=== PATIENT | male | born 1940 | race Caucasian/White ===

== ENCOUNTER 2024-10-15 21:53 | Emergency (ER) | payer MEDICARE ==
--- NOTE | 2024-10-15 21:57 | ERPHSYRPT ---
- History of Present Illness Time Seen by Provider: 10/15/24 21:57 Source: patient, family Exam Limitations: no limitations Physician History: This is an 84-year-old white male patient who was brought to the emergency department by private vehicle accompanied by his son. The patient's family have a camera installed so they can keep an eye on their father noticed that he was crawling on the ground. They went to see him and he was confused and complained that he was having some dizziness. He denies chest pain. Patient does have a degree of dementia. Patient states he did not fall he just was dizzy so he slowly made his way to the ground. Since the time the family picked him up and the son brought him to the emergency department, the son and patient states that he is at his baseline neurologically. Patient is oriented to himself and to location. Patient is NIH stroke scale is 0. The patient has a history of diabetes, dementia, hypertension and hyperlipidemia Timing/Duration: today Severity: mild Character of Deficits: none Baseline Gait: walks w/o assistance Associated Symptoms: confusion, other (Mild dizziness. Patient is not oriented to time but is alert oriented to self and location) Allergies/Adverse Reactions: No Known Drug Allergies Allergy (Verified 10/15/24 22:25) Home Medications: Amlodipine Besylate 5 mg [Norvasc 5 mg] 10 mg PO DAILY 12/31/21 [History] Aspirin 81 gm Chew [Baby Aspirin 81 mg Chew] 81 gm PO DAILY 12/31/21 [History] Atorvastatin Calcium [Lipitor 20MG Tablet] 20 mg PO DAILY 12/31/21 [History] Metoprolol Tartrate 50 mg [Lopressor 50 MG] 50 mg PO BID 12/31/21 [History] Lisinopril 10 mg [Zestril 10 MG] 1 tab PO HS 03/12/23 [History] Metformin HCl [Metformin HCl ER] 2 tab PO BID 03/12/23 [History] Quetiapine Fumarate 100 mg [Seroquel 100 MG] 100 mg PO HS 10/15/24 [History] Hx Tetanus, Diphtheria Vaccination/Date Given: Yes Hx Influenza Vaccination/Date Given: Yes Hx Pneumococcal Vaccination/Date Given: Yes Travel Risk - International Travel Have you traveled outside of the country in past 3 weeks: No - Emerging Infectious Disease Are you exhibiting symptoms associated with any current EIDs: No - Review of Systems Constitutional: No Symptoms Eyes: No Symptoms Ears, Nose, & Throat: No Symptoms Respiratory: No Symptoms Cardiac: No Symptoms Abdominal/Gastrointestinal: No Symptoms Genitourinary Symptoms: No Symptoms Musculoskeletal: No Symptoms Skin: No Symptoms Neurological: No Symptoms Psychological: No Symptoms Endocrine: No Symptoms Hematologic/Lymphatic: No Symptoms Immunological/Allergic: No Symptoms All Other Systems: Reviewed and Negative - Past Medical History Pertinent Past Medical History: No - Past Surgical History Past Surgical History: Yes Other Surgical History: heart graft Significant Family History: no pertinent family hx - Social History Smoking Status: Former smoker Exposure to second hand smoke: No Drug Use: none Patient Lives Alone: Yes - Nursing Vital Signs Nursing Vital Signs: Initial Vital Signs Temperature 97.6 F 10/15/24 22:06 Pulse Rate 67 10/15/24 22:06 Respiratory Rate 16 10/15/24 22:06 Blood Pressure 137/72 10/15/24 22:06 O2 Sat by Pulse Oximetry 99 10/15/24 22:06 Pain Scale Pain Intensity 0 - [place] Coma Scale Best Eye Response (Selena): (4) open spontaneously Best Verbal Response (Selena): (5) oriented Best Motor Response ([place]): (6) obeys commands [place] Total: 15 - Physical Exam General Appearance: no apparent distress, alert, anxiety Eye Exam: bilateral eye: normal inspection, PERRL, EOMI Ears, Nose, Throat Exam: normal ENT inspection, moist mucous membranes Neck Exam: normal inspection, non-tender, supple, full range of motion Respiratory: normal breath sounds, lungs clear, airway intact, No chest tenderness, No respiratory distress Cardiovascular: regular rate/rhythm, normal heart sounds, normal peripheral pulses Gastrointestinal: soft, normal bowel sounds, No tenderness Rectal Exam: not done Back Exam: normal inspection, normal range of motion, No CVA tenderness, No vertebral tenderness Extremity Exam: normal inspection, normal range of motion, pelvis stable Mental Status: alert, oriented x 3, 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 QTc is 424) Ordered Tests: Active Orders 24 hr Category Date Time Status EKG-ER Only STAT Care 10/15/24 22:43 Active IV Insertion STAT Care 10/15/24 22:43 Active NPO (ED) STAT Care 10/15/24 22:44 Active Pulse Oximetry (ED) STAT Care 10/15/24 22:43 Active HEAD WITHOUT CONTRAST [CT] Stat Exams 10/15/24 22:44 Completed CBC W DIFF Stat Lab 10/15/24 22:54 Completed CMP Stat Lab 10/15/24 22:54 Completed MAGNESIUM Stat Lab 10/15/24 22:54 Completed MONO SCREEN Stat Lab 10/15/24 22:54 Completed TROPONIN Q4H Lab 10/15/24 22:54 Completed TROPONIN Q4H Lab 10/16/24 02:45 Ordered TROPONIN Q4H Lab 10/16/24 06:45 Ordered UA W/RFX UR CULTURE Stat Lab 10/16/24 00:50 Completed Medication Summary Generic Name Dose Route Start Last Admin Trade Name Freq PRN Reason Stop Dose Admin Sodium Chloride 1,000 mls @ 100 mls/hr 10/15/24 22:45 10/15/24 23:02 Sodium Chloride 0.9% 1000 Ml IV 11/14/24 22:44 100 mls/hr .Q10H SAVANAH Administration Lab/Rad Data: Laboratory Result Diagrams 10/15/24 22:54 10/15/24 22:54 Laboratory Results 10/16/24 10/15/24 10/15/24 Range/Units 00:50 23:10 22:56 WBC (4.23-9.07) x10^3/uL RBC (4.63-6.08) x10^6/uL Hgb (13.7-17.5) g/dL Hct (40.1-51.0) % MCV (79.0-92.2) fL MCH (25.7-32.2) pg MCHC (32.3-36.5) g/dL RDW (11.6-14.4) % Plt Count (163-337) x10^3/uL MPV (9.4-12.4) fL Gran % (34.0-67.9) % Immature Gran % (Auto) (0.001-0.429) % Nucleat RBC Rel Count (0.00-0.2) % Eos # (Auto) (0.04-0.54) x10^3/uL Immature Gran # (Auto) (0.001-0.031) x10^3u/L Absolute Lymphs (auto) (1.32-3.57) x10^3/uL Absolute Monos (auto) (0.30-0.82) x10^3/uL Absolute Nucleated RBC (0.00-0.012) x10^3u/L Lymphocytes % (21.8-53.1) % Monocytes % (5.3-12.2) % Eosinophils % (0.8-7.0) % Basophils % (0.2-1.2) % Absolute Granulocytes (1.78-5.38) x10^3/uL Basophils # (0.01-0.08) x10^3/uL Sodium (135-145) mmol/L Potassium (3.5-5.1) mmol/L Chloride (98-107) mmol/L Carbon Dioxide (22-30) mmol/L Anion Gap (5-15) MEQ/L BUN (9-20) mg/dL Creatinine (0.66-1.25) mg/dL Estimated GFR ML/MIN Glucose (74-106) mg/dL Calcium (8.4-10.2) mg/dL Magnesium (1.6-2.3) mg/dL Total Bilirubin (0.2-1.3) mg/dL AST (17-59) U/L ALT (0-50) U/L Alkaline Phosphatase (38-126) U/L Ammonia < 9 L (9-30) umol/L Troponin I (0.000-0.033) ng/mL Serum Total Protein (6.3-8.2) g/dL Albumin (3.5-5.0) g/dL Urine Color Yellow (Yellow) Urine Appearance Clear (Clear) Urine pH 5.0 (4.6-8.0) Ur Specific [place] 1.025 (1.005-1.030) Urine Protein 30 (Negative) Urine Glucose (UA) 100 A (Negative) mg/dL Urine Ketones Trace A (Negative) Urine Blood Negative (Negative) Urine Nitrite Negative (Negative) Urine Bilirubin Negative (Negative) Urine Urobilinogen 0.2 (0.2) mg/dL Ur Leukocyte Esterase Negative (Negative) U Hyaline Cast (Auto) 6-10 A (0-2) /LPF Urine Microscopic RBC 0-2 (0-5) /HPF Urine Microscopic WBC 0-2 (0-5) /HPF Ur Epithelial Cells None Seen (None Seen) /HPF Urine Bacteria None Seen (None Seen) /HPF Urine Culture Reflexed NO (NO) Monoscreen (NEGATIVE) Influenza Type A Ag NEGATIVE (NEGATIVE) Influenza Type B Ag NEGATIVE (NEGATIVE) RSV (PCR) NEGATIVE (NEGATIVE) SARS-CoV-2 (PCR) NEGATIVE (NEGATIVE) 10/15/24 10/15/24 10/15/24 Range/Units 22:54 22:54 22:54 WBC (4.23-9.07) x10^3/uL RBC (4.63-6.08) x10^6/uL Hgb (13.7-17.5) g/dL Hct (40.1-51.0) % MCV (79.0-92.2) fL MCH (25.7-32.2) pg MCHC (32.3-36.5) g/dL RDW (11.6-14.4) % Plt Count (163-337) x10^3/uL MPV (9.4-12.4) fL Gran % (34.0-67.9) % Immature Gran % (Auto) (0.001-0.429) % Nucleat RBC Rel Count (0.00-0.2) % Eos # (Auto) (0.04-0.54) x10^3/uL Immature Gran # (Auto) (0.001-0.031) x10^3u/L Absolute Lymphs (auto) (1.32-3.57) x10^3/uL Absolute Monos (auto) (0.30-0.82) x10^3/uL Absolute Nucleated RBC (0.00-0.012) x10^3u/L Lymphocytes % (21.8-53.1) % Monocytes % (5.3-12.2) % Eosinophils % (0.8-7.0) % Basophils % (0.2-1.2) % Absolute Granulocytes (1.78-5.38) x10^3/uL Basophils # (0.01-0.08) x10^3/uL Sodium 139 (135-145) mmol/L Potassium 5.1 (3.5-5.1) mmol/L Chloride 109 H (98-107) mmol/L Carbon Dioxide 17 L (22-30) mmol/L Anion Gap 17.4 H (5-15) MEQ/L BUN 23 H (9-20) mg/dL Creatinine 1.73 H (0.66-1.25) mg/dL Estimated GFR 38.9 ML/MIN Glucose 132 H (74-106) mg/dL Calcium 8.6 (8.4-10.2) mg/dL Magnesium 2.1 (1.6-2.3) mg/dL Total Bilirubin 0.50 (0.2-1.3) mg/dL AST 21 (17-59) U/L ALT 17 (0-50) U/L Alkaline Phosphatase 108 (38-126) U/L Ammonia (9-30) umol/L Troponin I < 0.012 (0.000-0.033) ng/mL Serum Total Protein 6.3 (6.3-8.2) g/dL Albumin 3.7 (3.5-5.0) g/dL Urine Color (Yellow) Urine Appearance (Clear) Urine pH (4.6-8.0) Ur Specific [place] (1.005-1.030) Urine Protein (Negative) Urine Glucose (UA) (Negative) mg/dL Urine Ketones (Negative) Urine Blood (Negative) Urine Nitrite (Negative) Urine Bilirubin (Negative) Urine Urobilinogen (0.2) mg/dL Ur Leukocyte Esterase (Negative) U Hyaline Cast (Auto) (0-2) /LPF Urine Microscopic RBC (0-5) /HPF Urine Microscopic WBC (0-5) /HPF Ur Epithelial Cells (None Seen) /HPF Urine Bacteria (None Seen) /HPF Urine Culture Reflexed (NO) Monoscreen NEGATIVE (NEGATIVE) Influenza Type A Ag (NEGATIVE) Influenza Type B Ag (NEGATIVE) RSV (PCR) (NEGATIVE) SARS-CoV-2 (PCR) (NEGATIVE) 10/15/24 Range/Units 22:54 WBC 9.0 (4.23-9.07) x10^3/uL RBC 4.40 L (4.63-6.08) x10^6/uL Hgb 12.0 L (13.7-17.5) g/dL Hct 37.7 L (40.1-51.0) % MCV 85.7 (79.0-92.2) fL MCH 27.3 (25.7-32.2) pg MCHC 31.8 L (32.3-36.5) g/dL RDW 15.2 H (11.6-14.4) % Plt Count 302 (163-337) x10^3/uL MPV 9.3 L (9.4-12.4) fL Gran % 81.6 H (34.0-67.9) % Immature Gran % (Auto) 0.6 H (0.001-0.429) % Nucleat RBC Rel Count 0.0 (0.00-0.2) % Eos # (Auto) 0.21 (0.04-0.54) x10^3/uL Immature Gran # (Auto) 0.05 H (0.001-0.031) x10^3u/L Absolute Lymphs (auto) 0.62 L (1.32-3.57) x10^3/uL Absolute Monos (auto) 0.75 (0.30-0.82) x10^3/uL Absolute Nucleated RBC 0.00 (0.00-0.012) x10^3u/L Lymphocytes % 6.9 L (21.8-53.1) % Monocytes % 8.3 (5.3-12.2) % Eosinophils % 2.3 (0.8-7.0) % Basophils % 0.3 (0.2-1.2) % Absolute Granulocytes 7.34 H (1.78-5.38) x10^3/uL Basophils # 0.03 (0.01-0.08) x10^3/uL Sodium (135-145) mmol/L Potassium (3.5-5.1) mmol/L Chloride (98-107) mmol/L Carbon Dioxide (22-30) mmol/L Anion Gap (5-15) MEQ/L BUN (9-20) mg/dL Creatinine (0.66-1.25) mg/dL Estimated GFR ML/MIN Glucose (74-106) mg/dL Calcium (8.4-10.2) mg/dL Magnesium (1.6-2.3) mg/dL Total Bilirubin (0.2-1.3) mg/dL AST (17-59) U/L ALT (0-50) U/L Alkaline Phosphatase (38-126) U/L Ammonia (9-30) umol/L Troponin I (0.000-0.033) ng/mL Serum Total Protein (6.3-8.2) g/dL Albumin (3.5-5.0) g/dL Urine Color (Yellow) Urine Appearance (Clear) Urine pH (4.6-8.0) Ur Specific [place] (1.005-1.030) Urine Protein (Negative) Urine Glucose (UA) (Negative) mg/dL Urine Ketones (Negative) Urine Blood (Negative) Urine Nitrite (Negative) Urine Bilirubin (Negative) Urine Urobilinogen (0.2) mg/dL Ur Leukocyte Esterase (Negative) U Hyaline Cast (Auto) (0-2) /LPF Urine Microscopic RBC (0-5) /HPF Urine Microscopic WBC (0-5) /HPF Ur Epithelial Cells (None Seen) /HPF Urine Bacteria (None Seen) /HPF Urine Culture Reflexed (NO) Monoscreen (NEGATIVE) Influenza Type A Ag (NEGATIVE) Influenza Type B Ag (NEGATIVE) RSV (PCR) (NEGATIVE) SARS-CoV-2 (PCR) (NEGATIVE) - Progress Progress: improved Progress Note: 10/15/24 23:06 My medical decision making in the assignment of moderate complexity to this patient's medical issue today is based on review of the patient's past medical history, review patient's medication list, review the patient's drug allergy list, history of present illness and physical findings on examination. The workup in this patient includes placement of a intravenous line, infusion of low rate crystalloid, CT scan of the head without contrast, twelve-lead EKG, urinal ysis, CBC, CMP, ammonia level, troponin level and magnesium level. Differential diagnosis includes but is not limited to acute intracranial abnormality, dehydration, electrolyte abnormalities, myocardial infarction, 10/16/24 00:39 I interpreted the patient's laboratory data results. The urinalysis is pending. Based on the laboratory data results, the patient does have a slightly elevated anion gap and a CO2 of 17. The GFR is low but it is improved over November 2019 for lab results. Viral swabs are negative. The CT scan of the head without contrast shows age-related cerebral atrophic changes. There is bilateral periventricular and white matter hypodensities. Likely these are small vessel ischemic changes. There is no evidence of acute infarct, hemorrhage or mass effect. 10/16/24 01:22 The urinalysis was interpreted by me. The patient has trace ketones in his urine suggesting mild dehydration. 10/16/24 01:24 The patient's son feels that his father's condition is at his baseline at this time. Counseled pt/family regarding: lab results, diagnosis, need for follow-up, rad results Medical Desision Making - Independent Historian Additional History obtained from: Family - Diagnostic Testing Diagnostic test were ordered, analyzed, and reviewed by me: Yes Radiological Interpretation: Reviewed by me, Teleradiologist Report - Risk of complications Low Risk: Low risk of morbidity from additional dx testing or treatment - Departure Departure Disposition: Home Clinical Impression: Mild dehydration, Dizziness, Dementia Condition: Stable Critical Care Time: No Referrals: GEENA GRESHAM [Primary Care Provider] - Follow up/PCP as directed Additional Instructions: Drink plenty of clear liquids. Stay with family members over the weekend. Return to the emergency department if symptoms recur/worsen. Call your primary care provider on 10/18/2024 to make arrangements for follow-up appointment for further evaluation management.
[2024-10-15 22:25] VITALS: TEMP 97.6
[2024-10-15 22:54] LABS: Absolute Neutrophil Ct (ANC) 7.34 x10^3/uL (1.78-5.38); BASOPHIL % 0.3 % (0.2-1.2); Basophil (Absolute #) 0.03 x10^3/uL (0.01-0.08); Eosinophil % 2.3 % (0.8-7.0); Eosinophil (Absolute #) 0.21 x10^3/uL (0.04-0.54); Hematocrit 37.7 % (40.1-51.0); IMMATURE GRAN # 0.05 x10^3u/L (0.001-0.031); IMMATURE GRAN % 0.6 % (0.001-0.429); Lymphocyte (Absolute #) 0.62 x10^3/uL (1.32-3.57); Lymphocytes % 6.9 % (21.8-53.1); Mean Cell Volume 85.7 fL (79.0-92.2); Mean Corpuscular Hemoglobin 27.3 pg (25.7-32.2); Mean Corpuscular Hgb Concent. 31.8 g/dL (32.3-36.5); Mean Platelet Volume 9.3 fL (9.4-12.4); Monocyte (Absolute #) 0.75 x10^3/uL (0.30-0.82); Monocytes % 8.3 % (5.3-12.2); Neutrophil % 81.6 % (34.0-67.9); Platelet Count 302 x10^3/uL (163-337); Red Cell Distribution Width 15.2 % (11.6-14.4)
[2024-10-15] MEDS ORDERED: Sodium Chloride 0.9% 1000 ML 1,000 ML ONE (23:01)
[2024-10-15] MEDS: Sodium Chloride 0.9% 1000 ML 1,000 ML IV SCH (23:02)
[2024-10-15 23:05] LABS: ALBUMIN 3.7 g/dL (3.5-5.0); ANION GAP 17.4 MEQ/L (5-15); BILIRUBIN,TOTAL 0.5 mg/dL (0.2-1.3); Calcium 8.6 mg/dL (8.4-10.2); Creatinine 1 1.73 mg/dL (0.66-1.25); EST GLOMERULAR FILTRATION RATE 38.9 ML/MIN; MAGNESIUM 2.1 mg/dL (1.6-2.3); Potassium 5.1 mmol/L (3.5-5.1); Total Protein 6.3 g/dL (6.3-8.2)
[2024-10-15 23:11] VITALS: O2SAT 99
[2024-10-15 23:48] LABS: INFLUENZA A NEGATIVE (NEGATIVE); INFLUENZA B NEGATIVE (NEGATIVE); RESPIRATORY SYNCTIAL VIRUS NEGATIVE (NEGATIVE); SARS-CoV-2 Xpert Express NEGATIVE (NEGATIVE)
--- NOTE | 2024-10-16 00:25 | XRAY ---
CLINICAL HISTORY: Dizziness; confusion COMPARISON: TECHNIQUE: Axial non-contrast CT scan of the brain was performed from the skull base to the high parietal region. One of the following dose reduction techniques were utilized for this exam: Automated exposure control, adjustment of the mA and/or kV according to patient size, use of iterative reconstruction. DLP 342.71 FINDINGS: Brain Parenchyma: Bilateral periventricular and white matter hypodensities likely represent small vessels ischemic changes. Age-related cerebral atrophic changes as evidenced by prominence of cortical sulci and gyri and mild prominent lateral ventricles. Normal attenuation of the cerebral hemispheres, cerebellum, and brainstem. No evidence of acute infarct, hemorrhage, or mass effect. No abnormal areas of hypo- or hyperattenuation. Ventricular System: Ventricles are normal in size and configuration. No evidence of hydrocephalus or ventricular enlargement. Subarachnoid Spaces: Normal sulci and cisterns. No evidence of subarachnoid hemorrhage or extra-axial fluid collections. Cerebellum and Brainstem: Normal size and signal. No masses, lesions, or areas of abnormal signal. Orbits: Normal appearance of the globes, optic nerves, and extraocular muscles. No evidence of orbital masses or abnormal signal. Sinuses: Minimal mucosal thickening of the right maxillary sinus. Clear paranasal sinuses. No evidence of sinusitis or mucosal thickening. Mastoid Air Cells: Clear mastoid air cells. No evidence of mastoiditis. Skull: Normal skull morphology. IMPRESSION: 1. Bilateral periventricular and white matter hypodensities likely represent small vessels ischemic changes. 2. Minimal mucosal thickening of the right maxillary sinus. 3. Otherwise unremarkable CT of the head without contrast. Electronically Signed by: Surinder Cochran MD. (10/16/2024 00:20:41 EST)
[2024-10-16 00:55] VITALS: BP 187/81; PULSE 68; RESP 18
[2024-10-16 01:11] LABS: Appearance Clear (Clear); Bacteria None Seen /HPF (None Seen); Bilirubin Negative (Negative); Blood Negative (Negative); Epithelial Cells None Seen /HPF (None Seen); Glucose, Urine 100 mg/dL (Negative); Ketones Trace (Negative); Leukocyte Esterase Negative (Negative); Nitrite Negative (Negative); Protein,Urine Dip 30 (Negative); RBC 0-2 /HPF (0-5); Specific Gravity 1.025 (1.005-1.030); Urobilinogen 0.2 mg/dL (0.2); WBC 0-2 /HPF (0-5)
== END 2024-10-16 01:36 | disposition home or self-care (01) ==
LOC: EDSEX 21:53 → ED 21:53
DX: E86.0 Dehydration (principal); R42 Dizziness and giddiness; F03.90 Unspecified dementia, unspecified severity, without behavioral disturbance, psychotic disturbance, mood disturbance, and anxiety; E11.9 Type 2 diabetes mellitus without complications; I10 Essential (primary) hypertension; E78.5 Hyperlipidemia, unspecified; Z79.84 Long term (current) use of oral hypoglycemic drugs; Z79.899 Other long term (current) drug therapy
CPT/HCPCS: 0241U; 36415; 70450; 80053; 81001; 82140; 83735; 84484; 85025; 86308; 93005; 94760; 99285; 99284